=== PATIENT | female | born 1950 | race Caucasian/White ===

== ENCOUNTER 2016-06-10 14:20 | Emergency (ER) | payer OTHER ==
[~2016-06-10] VITALS: Ht 172.7 cm; Wt 105.5 kg
[2016-06-10 14:36] VITALS: BP 150/95; PULSE 74; RESP 16; O2SAT 99
--- NOTE | 2016-06-10 16:08 | DRSVH ---
PROCEDURE: X-RAY LEFT TIBIA/FIBULA, TWO VIEWS ([id number]) INDICATIONS: fall with twisting motion TECHNIQUE: 2 views of the tibia and fibula were acquired. COMPARISON: None. FINDINGS: Bones: No fractures or dislocations. No suspicious bony lesions. Soft tissues: No suspicious soft tissue calcifications or masses. IMPRESSION: No visualized acute fracture or dislocation. However, if clinical concern and/or pain pe rsist, short interval imaging followup in 7-10 days is recommended, as occult injury cannot be defini tively excluded. Dictated by: Marline Rodriguez M.D. on 06/10/2016 at 16:06 Approved by: Marline Rodriguez M.D. on 06/10/2016 at 16:06
--- NOTE | 2016-06-10 16:58 | ED.REPORT ---
HPI-Extremity Problem Lower Date of Service Jun 10, 2016 ED Provider: Casey De La Torre MD Pt is a 65 y/o healthy female presenting to the ED due to left lower leg injury which occurred early this morning. The pt twisted her leg and heard a pop early this morning and since then has had trouble walking. Her pain is mostly located about the left lateral leg. She denies numbness or weakness of the leg, fever. Nursing Notes Stated Complaint: HURT LEFT LEG Chief Complaint: Extremity Trauma Nursing Notes Reviewed: Yes Allergies: Coded Allergies: No Known Allergies (Verified Allergy, Unknown, 06/10/16) Scheduled PRN Ibuprofen (Ibuprofen) 800 Mg Tablet 800 MG PO TID PRN PRN For Pain General Time Seen by MD: 16:57 Chief Complaint Leg injury left Hx Obtained From: Patient Arrived By: Walk-in Onset Occurred: 9 - 12 hours ago Symptom Duration: Since onset Caused by: Body motion Location: : Leg left Quality: Painful Severity: Current: Moderate Severity: Maximum: Moderate Exacerbated by: Range of motion Similar Sx Previous: No Past Medical History Past Medical History GERD Past Surgical History denies Smoking History Current Every Day Smoker Social History Alcohol Use: Denies alcohol use Drug Use: Denies drug use Other Social History: Lives alone Ambulatory Status Independent Review of Systems Constitutional: Denies: Fever Musculoskeletal: Reports: Extremity pain Skin: Denies Rash Neurologic: Denies: Numbness, Weakness Complete sys rev & neg: except as marked. Respiratory: Denies: Shortness of breath Cardiovascular: Denies: Chest pain GI: Denies: Vomiting Physical Exam Initial Vital Signs Vital Signs (First) Date Time Temp Pulse Resp B/P Pulse Ox O2 Delivery O2 Flow Rate FiO2 06/10/16 14:36 36.2 74 16 150/95 99 Room Air Initial VS: Reviewed, Vital signs normal Head / Eyes: Atraumatic, Normocephalic, PERRL ENT: Mucous membranes moist, Conjunctiva normal, No scleral icterus Neck: Supple, Full range of motion Respiratory: Breath sounds normal, Clear to auscultation, No respiratory distress Cardiovascular: Regular rate & rhythm, Heart sounds normal, Intact distal pulses Abdomen / GI: Soft Upper Extremities: Vascular intact, Neuro intact, No swelling, No tenderness Skin: Warm, Dry, No cyanosis Neurologic: Alert, Oriented, Nonfocal Psychiatric: Mood/affect normal, Behavior normal, Normal thought content Lower Extremity / Pelvis / MS: Atraumatic, Inspection NL, Full range of motion , No swelling, No erythema, No deformity, Neurologic intact, Vascular intact, No compartment syndrome, No circumferential injury, No edema, Pelvis stable Tenderness over left lower leg, just lateral to the tibia. No palpable cords Ankle / Foot: Atraumatic, Inspection NL, Full range of motion, No swelling, No erythema, Non-tender, No deformity, Neurologic intact, Vascular intact, No compartment syndrome, No circumferential injury, No edema Interpretation & Diagnostics X-Ray Interpretation Xray Interpretation: IMPRESSION: No visualized acute fracture or dislocation. However, if clinical concern and/or pain persist, short interval imaging followup in 7-10 days is recommended, as occult injury cannot be definitively excluded. Dictated by: Marline Rodriguez M.D. on 06/10/2016 at 16:06 Approved by: Marline Rodriguez M.D. on 06/10/2016 at 16:06 Study Performed: 2 view X-Ray Ordered: Tibia fibula left Interpretation / Wet Read by: Interpret - Radiologist Re-Eval/Medical Decision Med Decision/Clinical Course 65-year-old female with left leg injury last night. She reports she was walking and twisted her leg and felt a pop in her left lower leg. Denies any weakness. No risk factors for DVT. It is not swollen. She is tender along her left calf muscle. Likely muscle strain given sudden onset after twisting motion. Patient was given Toradol and prescription for ibuprofen. She was given crutches given she had difficulty walking due to the pain. RICE. Return precautions given. Re-Evaluation/Progress : Time of Eval: 17:06 Re-Evaluation/Progress Note: Pt rechecked. Informed pt of plan for treatment. Pt understands and agrees with plan for treatment. F/U and RTER warnings given. All questions addressed. Counseled Regarding: Diagnosis, Need for follow-up, When/why to return to ED Discharge & Departure Impression: Primary Impression: Muscle strain of left lower leg Encounter type: initial encounter Qualified Code: S86.912A - Strain of unspecified muscle(s) and tendon(s) at lower leg level, left leg, initial encounter Disposition: Home Discharge Condition All VS Reviewed: Yes Condition: Stable Patient Instructions: Crutch Instructions (ED), Muscle Strain (ED) Additional Instructions: Your leg x-ray today was normal, there was no sign of fracture. You likely strained a muscle in your leg. Take 800 mg Ibuprofen every 8 hours as needed for pain. Use the crutches until you can bear weight. Follow-up with a primary care doctor if you symptoms persist. Return to the emergency department if you develop numbness or weakness of the left leg or foot, high fever, severe uncontrolled pain, or for other concerning symptoms. Referrals: [facility] Scribe Attestation Portions of this note were transcribed by Bryant Musa. I, Dr. De La Torre personally performed the history, physical exam and medical decision-making; I reviewed and confirmed the accuracy of the information in the transcribed note. Signed by Criss Bingham, 06/10/16 - 8 Casey De La Torre MD Jun 10, 2016 16:58 BRYANT MUSA Jun 10, 2016 17:09
[2016-06-10] MEDS ORDERED: IBUP800T28 PO (17:04)
[2016-06-10] MEDS ORDERED: Ketorolac 30 mg/mL 2 mL Inj IM ONE (17:05)
== END 2016-06-10 18:09 | disposition home or self-care (01) ==
LOC: SED 14:20
DX: S86.912A Strain of unspecified muscle(s) and tendon(s) at lower leg level, left leg, initial encounter (principal); X50.1XXA Overexertion from prolonged static or awkward postures, initial encounter; Y93.9 Activity, unspecified; Y92.9 Unspecified place or not applicable; Y99.9 Unspecified external cause status; K21.9 Gastro-esophageal reflux disease without esophagitis; F17.200 Nicotine dependence, unspecified, uncomplicated
CPT/HCPCS: 73590; 96372; 99284; J1885